=== PATIENT | male | born 1965 | race Caucasian/White ===

== ENCOUNTER 2019-02-20 07:35 | Day surgery (SDC) | payer OTHER ==
[~2019-02-20] VITALS: Ht 185.4 cm; Wt 125.2 kg
[~2019-02-20 07:35] MED LIST: ASPI325 PO; Altace2.5 MG PO; Coreg CR20 MG; Coreg CR20 MG PO; FENO145 PO; ROSU10TA PO; SPIR25 PO
== END 2019-02-20 10:21 | disposition home or self-care (01) ==
LOC: ORSCSDS 07:35
PROVIDERS: Podiatrist Foot & Ankle Surgery
PROC: 0QSN04Z Reposition Right Metatarsal with Internal Fixation Device, Open Approach (ICD-10-PCS; principal; 2019-02-20 08:30)
DX: M77.41 Metatarsalgia, right foot (principal); S93.144A Subluxation of metatarsophalangeal joint of right lesser toe(s), initial encounter; I25.2 Old myocardial infarction; I10 Essential (primary) hypertension; I25.10 Atherosclerotic heart disease of native coronary artery without angina pectoris; Z79.899 Other long term (current) drug therapy; Z79.82 Long term (current) use of aspirin; E66.01 Morbid (severe) obesity due to excess calories; Z68.36 Body mass index [BMI] 36.0-36.9, adult
CPT/HCPCS: C1713; J0171; J0690; J1100; J2250; J2405; J2704; J3010; J7120